=== PATIENT | male | born 1985 | race African-American/Black ===

== ENCOUNTER 2022-05-16 16:18 | Emergency (ER) | payer BC ==
[~2022-05-16] VITALS: Ht 182.9 cm; Wt 75.0 kg
[2022-05-16] MEDS ORDERED: KETOROLAC 30MG/ML VIAL IM ONE (20:00)
[2022-05-16] MEDS ORDERED: METHOCARBAMOL 500MG TABLET PO ONE (20:00)
[2022-05-16 20:17] VITALS: BP 166/142
== END 2022-05-16 22:19 | disposition left against medical advice (07) ==
LOC: ER 16:39
DX: S39.012A Strain of muscle, fascia and tendon of lower back, initial encounter (principal); R03.0 Elevated blood-pressure reading, without diagnosis of hypertension; X58.XXXA Exposure to other specified factors, initial encounter; Y93.89 Activity, other specified; Y92.89 Other specified places as the place of occurrence of the external cause
CPT/HCPCS: 96372; 99283; J1885

== ENCOUNTER 2022-11-01 13:35 | Emergency (ER) | payer MEDICAID ==
[~2022-11-01] VITALS: Ht 182.9 cm; Wt 75.0 kg
[2022-11-01 13:45] VITALS: BP 153/96; TEMP 98.7; O2SAT 100
[2022-11-01 13:52] VITALS: PULSE 94
[2022-11-01] MEDS ORDERED: MORPHINE SULFATE 4 MG/ML CPJ (NOT FOR IM USE) IV ONE (15:30)
[2022-11-01 16:47] LABS: BASOPHILS % 0.6 % (0.0-2.0); EOSINOPHILS % 0.3 % (0.0-5.0); HEMATOCRIT. 38.7 % (42.0-52.0); HEMOGLOBIN. 12.8 g/dL (14.0-18.0); LYMPHOCYTES % 12.1 % (20.0-50.0); MEAN CORPUSCULAR HEMOGLOBIN 29.8 pg (28.0-32.0); MEAN CORPUSCULAR HGB CONC 33.2 g/dL (31.0-37.0); MEAN CORPUSCULAR VOLUME 89.7 fL (80.0-94.0); PLATELET 234 x1000/uL (130-400); RED BLOOD CELL COUNT 4.31 mill/uL (4.7-6.1); RED CELL DISTRIBUTION WIDTH 14.8 % (11.6-14.6); WHITE BLOOD COUNT 7.2 x1000/uL (4.5-11.0)
[2022-11-01 16:55] LABS: CHLORIDE 108 mEq/L (98-107); INDEX HEMOLYSI 1 (1-3); INDEX ICTERIC 1 (1-4); INDEX LIPEMIC 1 (1-3); POTASSIUM 3.3 mEq/L (3.5-5.1); SODIUM 135 mEq/L (136-145)
[2022-11-01 17:04] LABS: ALANINE AMINOTRANSFERASE 24 IU/L (13-61); ALBUMIN 3.9 g/dL (3.4-5.0); ASPARTATE AMINOTRANSFERASE 30 IU/L (15-37); BILIRUBIN TOTAL 0.6 mg/dL (0.1-1.0); CALCIUM 8.8 mg/dL (8.5-10.1); CARBON DIOXIDE 24 mEq/L (21-32); CREATININE 0.9 mg/dL (0.6-1.3); GLUCOSE 105 mg/dL (70-105); PROTEIN TOTAL 8.3 g/dL (6.0-8.3); UREA NITROGEN BLOOD 13 mg/dL (7-21)
[2022-11-01 17:51] VITALS: RESP 16
[2022-11-01] MEDS: MORPHINE SULFATE 4 MG/ML CPJ (NOT FOR IM USE) IV NR (17:51)
== END 2022-11-01 23:12 | disposition home or self-care (01) ==
LOC: ER 13:35 → EDBEDREQ 19:08 → EDBEDREQTM 19:08 → ER 23:12 → CANBEDREQ 11-02 00:05
DX: M25.552 Pain in left hip (principal); I10 Essential (primary) hypertension; W00.0XXA Fall on same level due to ice and snow, initial encounter; Y93.89 Activity, other specified; Y92.89 Other specified places as the place of occurrence of the external cause; Y99.8 Other external cause status
CPT/HCPCS: 99285; 96374; 72131; 80053; 85025; 36415; J2270